=== PATIENT | male | born 1960 ===

== ENCOUNTER 2024-08-23 06:26 | Day surgery (SDC) | payer BC, SELFPAY | END 2024-08-23 15:22 | disposition home or self-care (01) | LOC: GI 06:26 | PROVIDERS: ATTENDING PHYSICIAN Internal Medicine Gastroenterology | DX: Z12.11 Encounter for screening for malignant neoplasm of colon (principal); K64.8 Other hemorrhoids; K62.1 Rectal polyp; D12.3 Benign neoplasm of transverse colon; D12.4 Benign neoplasm of descending colon; K63.5 Polyp of colon; K63.9 Disease of intestine, unspecified | CPT/HCPCS: 45385; 45380; 88305 ==